=== PATIENT | female | born 1990 | race Caucasian/White ===

== ENCOUNTER 2022-10-01 20:19 | Emergency (ER) | payer BC, OTHER ==
[~2022-10-01] VITALS: Ht 165.1 cm; Wt 104.3 kg
[~2022-10-01 20:19] MED LIST: (None)20 M1 PO; ACET325 PO; ALBU90OI INH; ALBU90OI6 INH; ALBU90OI61 INH; AMIT25 PO; AZIT250 PO; BCP; BENZ100A PO; Bactrim Ds Tab1 EACH PO; CEPH500 PO; CHOL10002 PO; CIPR250 PO; CIPRO500 MG PO; CITA20 PO; CLIN150 PO; CODGUAEL PO; CYCL10 PO; Ciprodex Otic7.5 ML RIGHTEAR; DICL25ER; DOXY100 PO; Excedrin Extra1 EACH; FLUO10 PO; FLUO20 PO; FLUSAL2505 INH; FLUSAL5005 INH; Flagyl500 MG PO; HYDACE5 PO; HYDR1TAB94 PO; IBUP600 PO; IBUP800 PO; IRON; IRON150C PO; KETO10 PO; LAMO50 PO; LAVAP17G PO; LORA.5 PO; MACRODANTIN; MELO7.5 PO; MONT10T PO; MULVITMINE PO; NAPR500 PO; NEOCOLOTSU BOTHEARS; NEOPOLHCSU RIGHTEAR; NITR100CA PO; NUTRISOURCE FIBE4 GM PO; NYST100P TOP; Naprosyn500 MG PO; Norco 5-325 Ta1 EACH PO; OMEP40CA12 PO; ONDA4ODT MM; OXYACE5T PO; PARO20 PO; PHENA200 PO; PRED20 PO; PRENZ PO; Percocet 5-3251 EACH PO; Prednisone20 MG PO; RANI150 PO; RXCLIN PO; Ranitidine HCl150 M1 PO; SACC250C PO; SPIRIVA RESPIMAT4 G1 IH; SULI150 PO; SULTRIDS PO; Sprintec1 EACH PO; TOPI25 PO; TRAM50 PO; Tylophen500 MG PO; Ultram50 MG PO; VIT C; Ventolin/Prove6.7 GM INH; Zithromax250 MG PO; Zofran4 MG PO; [UNRECOGNIZED DRUG - OTHER]
[2022-10-01] MEDS ORDERED: ALBU2.5V5 INH (21:18)
== END 2022-10-01 21:23 | disposition home or self-care (01) ==
LOC: ER 20:19
DX: O99.512 Diseases of the respiratory system complicating pregnancy, second trimester (principal); J45.909 Unspecified asthma, uncomplicated; Z3A.00 Weeks of gestation of pregnancy not specified; Z88.0 Allergy status to penicillin; Z88.5 Allergy status to narcotic agent; Z79.899 Other long term (current) drug therapy
CPT/HCPCS: 94640; 94664

== ENCOUNTER 2023-01-13 17:16 | Inpatient (IN) | payer BC, OTHER ==
[~2023-01-13] VITALS: Ht 165.1 cm; Wt 117.0 kg
[2023-01-13] VITALS (35 sets, daily range): BP systolic 67–203; BP diastolic 36–97
[~2023-01-13 17:16] MED LIST changes: +ALBU2.5V5 INH
[2023-01-13 18:10] LABS: BASOPHILS ABSOLUTE AUTO 0.03 K/mm3 (0.00-0.23); BASOPHILS PERCENT AUTO 0 % (0-2); EOSINOPHILS ABSOLUTE AUTO 0.08 K/mm3 (0.00-0.68); EOSINOPHILS PERCENT AUTO 1 % (0-6); Hemoglobin 9.4 g/dL (11.5-16.0); IMMATURE GRAN ABSOLUTE AUTO 0.07 K/mm3 (0.00-0.10); IMMATURE GRAN PERCENT AUTO 1 % (0-1); LYMPHOCYTES ABSOLUTE AUTO 1.97 K/mm3 (0.84-5.20); LYMPHOCYTES PERCENT AUTO 17 % (21-46); MONOCYTES ABSOLUTE AUTO 0.83 K/mm3 (0.16-1.47); MONOCYTES PERCENT AUTO 7 % (4-13); Mean Corpuscular HGB 26.3 pg (26.0-34.0); Mean Corpuscular HGB Conc 32.4 g/dL (31.5-36.5); Mean Corpuscular Volume 81 fL (80-100); Mean Platelet Volume 11.1 fL (9.1-12.4); NEUTROPHILS ABSOLUTE AUTO 8.64 K/mm3 (1.96-9.15); NEUTROPHILS PERCENT AUTO 74 % (41-73); Platelet Count 242 K/mm3 (150-400); RDW Coefficient Variation 15.9 % (11.7-14.2); RDW Standard Deviation 46.5 fL (35.1-46.3); Red Blood Cell Count 3.57 M/mm3 (3.80-5.20); White Blood Cell Count 11.62 K/mm3 (4.00-11.30)
[2023-01-13 18:22] LABS: Albumin, Blood 2.5 g/dL (3.4-5.0); Albumin/Globulin Ratio 0.6 (0.8-1.8); Bilirubin, Total 0.2 mg/dL (0.1-1.0); Bun/Creatinine Ratio 15.8 (12.0-20.0); Calcium, Blood 9.6 mg/dL (8.5-10.1); Creatinine, Blood 0.57 mg/dL (0.40-1.00); Globulin, Blood 4.1 g/dL (2.2-4.0); Potassium, Blood 3.5 mmol/L (3.5-5.5); Total Protein, Blood 6.6 g/dL (6.4-8.2)
[2023-01-14] VITALS (65 sets, daily range): BP systolic 92–206; BP diastolic 51–115
[2023-01-14] MEDS ORDERED: LABE200 PO (07:33)
[2023-01-14] MEDS ORDERED: PRENATAL TABLE1 EAC2 PO (07:34)
[2023-01-15] VITALS (53 sets, daily range): BP systolic 123–193; BP diastolic 58–110
[2023-01-15 04:52] LABS: Hematocrit 27.2 % (33.0-51.0); Hemoglobin 8.6 g/dL (11.5-16.0); Mean Corpuscular HGB 26.1 pg (26.0-34.0); Mean Corpuscular HGB Conc 31.6 g/dL (31.5-36.5); Mean Corpuscular Volume 82 fL (80-100); Mean Platelet Volume 11.5 fL (9.1-12.4); Platelet Count 219 K/mm3 (150-400); RDW Coefficient Variation 16.2 % (11.7-14.2); RDW Standard Deviation 48.2 fL (35.1-46.3); White Blood Cell Count 11.98 K/mm3 (4.00-11.30)
--- NOTE | 2023-01-15 14:59 | NUR ---
PATIENTS BLOOD PRESSURE 177/102. PATIENT SITTING STRAIGHT UP IN BED EATING CHILI. MEDICATED WITH 200 MG OF LABETALOL APPROX 1445. C. GA WHITLEYM ON UNIT AND NOTIFIED OF ELEVATED BP. ORDER TO RECHECK BP I 1 HOUR
--- NOTE | 2023-01-15 20:52 | NUR ---
BP NOTE: PT BP 193/105. RN ENTERED ROOM AND PT SITTING UP IN BED TRYING TO PUMP. PT STATES THAT SHE HAS A LOT GOING ON STATING CONCERNS ABOUT NOT BEING ABLE TO FEED HER BABY BECAUSE HER PUMP IS NOT WORKING AND THE BABY IS NOW DISCHARGED. THIS RN ASSISSTED PT WITH BREAST PUMP AND REASSURED HER THAT WE WILL MAKE SURE HER BABY IS FED. PT REASSURED THAT SMALL AMOUNTS OF EXPRESSED MILK IS NORMAL AT THIS TIME. FAMILY MEMBERS EDUCATED ON IMPORTANCE OF CALM ENVIRONMENT. LIGHTS TURNED OFF AT THIS TIME.
[2023-01-16] VITALS (44 sets, daily range): BP systolic 127–212; BP diastolic 63–119
--- NOTE | 2023-01-16 10:40 | NUR ---
PT MOVING WITH EVERY SINGLE BLOOD PRESSURE. EACH TIME THE BLOOD PRESSURE MACHINE GOES OFF I ASK PT TO PLEASE SIT STILL AND SHE CONTINUES TO MOVE, FEED BABY, STRETECH HER ARMS, SIT UP, AND TALK. PT IS NOT COMPLIANT WITH STAYING STILL DURING BP CHECKS.
--- NOTE | 2023-01-16 10:56 | NUR ---
PT TEARFUL AND EMOTIONAL BECAUSE SHE "WANTS TO GO HOME". I EXPLAINED TO PT WHY IT IS IMPORTANT FOR HER TO STAY IN THE HOSPITAL UNDER OUR CARE/ MONITORING. PT UNDERSTANDS. SHE REPORTS SHE IS JUST "TIRED AND FRUSTRATED BECAUSE SHE DOESN'T UNDERSTAND WHY HER BP'S ARE HIGH". I STAYED WITH PT FOR AROUND 15 MINUTES AND TALKED TO HER ABOUT PIH AND WHY IT CAN HAPPEN RANDOMLY. PT FELT BETTER AFTER I LEFT AND STATED SHE WAS ACCEPTING OF STAYING THE REST OF THE DAY.
--- NOTE | 2023-01-16 11:19 | NUR ---
INDIA SCHERER CALLED ON THE PHONE AND STATED THAT SHE CONSULTED WITH DR. HENRY. DR. HENRY ORDERED THAT WE START THE PROTOCOL EVEN AFTER GIVING THE NIFEDIPINE 60CXR AT 1003.
--- NOTE | 2023-01-16 14:28 | NUR ---
INDIA SCHERER CONTACTED AND TOLD THAT PT'S BLOOD PRESSURE IS STLL 159/102 AFTER RUNNING THE LEBETOLOL PROTOCOL. PT DENIES HEADACHE, BLURRY VISION, EPIGASTRIC PAIN, OR ANYTHING "ABNORMAL" INDIA CONSULTED WITH DR WONDERLY ON THE PHONE AND HE RECOMMENDED STARTING MAGNESIUM AGAIN IV ON PT. WAITING FOR ORDERS AND THEN WILL START MAGNESIUM ON PT. WILL CONTUNUE TO MONITOR.
[2023-01-16 16:19] LABS: BASOPHILS ABSOLUTE AUTO 0.04 K/mm3 (0.00-0.23); BASOPHILS PERCENT AUTO 0 % (0-2); EOSINOPHILS ABSOLUTE AUTO 0.13 K/mm3 (0.00-0.68); EOSINOPHILS PERCENT AUTO 1 % (0-6); Hematocrit 28.2 % (33.0-51.0); Hemoglobin 8.7 g/dL (11.5-16.0); IMMATURE GRAN ABSOLUTE AUTO 0.03 K/mm3 (0.00-0.10); IMMATURE GRAN PERCENT AUTO 0 % (0-1); LYMPHOCYTES ABSOLUTE AUTO 1.64 K/mm3 (0.84-5.20); LYMPHOCYTES PERCENT AUTO 18 % (21-46); MONOCYTES ABSOLUTE AUTO 0.54 K/mm3 (0.16-1.47); MONOCYTES PERCENT AUTO 6 % (4-13); Mean Corpuscular HGB Conc 30.9 g/dL (31.5-36.5); Mean Corpuscular Volume 84 fL (80-100); Mean Platelet Volume 11.2 fL (9.1-12.4); NEUTROPHILS ABSOLUTE AUTO 6.66 K/mm3 (1.96-9.15); NEUTROPHILS PERCENT AUTO 74 % (41-73); Platelet Count 255 K/mm3 (150-400); RDW Coefficient Variation 16.1 % (11.7-14.2); Red Blood Cell Count 3.35 M/mm3 (3.80-5.20); White Blood Cell Count 9.04 K/mm3 (4.00-11.30)
[2023-01-16 16:38] LABS: Albumin, Blood 2.6 g/dL (3.4-5.0); Albumin/Globulin Ratio 0.6 (0.8-1.8); Bilirubin, Total 0.3 mg/dL (0.1-1.0); Bun/Creatinine Ratio 14.1 (12.0-20.0); Calcium, Blood 8.1 mg/dL (8.5-10.1); Creatinine, Blood 0.57 mg/dL (0.40-1.00); Globulin, Blood 4.2 g/dL (2.2-4.0); Total Protein, Blood 6.8 g/dL (6.4-8.2)
[2023-01-16 16:39] LABS: International Normalized Ratio 0.85
--- NOTE | 2023-01-16 19:21 | NUR ---
RN INTO ROOM TO ASSESS AND ROUND ON PT. PT AND FOB ARE OUT OF ROOM. 10 YEAR OLD DAUGHTER IS CURRENTLTY WATCHING THE NB. NB FOUND TO BE IN [place] SLEEPING WITH LOOSE BLANKET UNDER THE NB'S FACE. RN PROVIDER BASIC EDUCATION TO THE 10 YEAR OLD DAUGHTER REGARDING WHY IT IS IMPORTANT TO PUT BABIES ON THEIR BACK WHILE THEY SLEEP AND DANGERS OF HAVING LOOSE BLANKETS, STUFFED ANIMALS,ETC IN CRIB. RIGHT WHEN RN WAS GOING TO RESWADDLE THE NB THE PARENTS CAME INTO THE ROOM FROM BEING OUTSIDE. THE MOTHER OF NB STATED THAT THE BABY SLEEPS BETTER ON HIS STOMACH AND SHE WAS "ACTUALLY ABLE TO TAKE A NAP" BECUASE HE WASNT FUSSING. AGAIN RN PROVIDED EDUCATION ON BACK TO SLEEP AND INCREASED RISK OF SIDS. PARENTS VERBALIZE UNDERSTANDING BUT CONTINUE TO LEAVE THE NB ON HIS STOMACH TO KEEP SLEEPING.
[2023-01-17] VITALS (10 sets, daily range): BP systolic 118–159; BP diastolic 63–84
[2023-01-17 01:21] LABS: Creatinine, Urine Random 36.5 mg/dL (27.00-270.00); Protein, Urine Random 13.4 mg/dL (0.0-11.9); Protein/Creat Ratio, Ur Random 0.4
== END 2023-01-17 15:35 | disposition home or self-care (01) | DRG 807 ==
LOC: OBS 17:16 → BC 17:16 → OBS 17:23 → BC 17:24
PROVIDERS: Registered Nurse Community Health; ADMIT Nurse Practitioner Obstetrics & Gynecology
PROC: 10E0XZZ Delivery of Products of Conception, External Approach (ICD-10-PCS; principal; 2023-01-14)
PROC: 0HQ9XZZ Repair Perineum Skin, External Approach (ICD-10-PCS; 2023-01-14)
PROC: 3E0R3BZ Introduction of Anesthetic Agent into Spinal Canal, Percutaneous Approach (ICD-10-PCS; 2023-01-14)
PROC: 00HU33Z Insertion of Infusion Device into Spinal Canal, Percutaneous Approach (ICD-10-PCS; 2023-01-14)
PROC: 10907ZC Drainage of Amniotic Fluid, Therapeutic from Products of Conception, Via Natural or Artificial Opening (ICD-10-PCS; 2023-01-14)
DX: O11.4 Pre-existing hypertension with pre-eclampsia, complicating childbirth (principal); Z37.0 Single live birth; Z3A.39 39 weeks gestation of pregnancy; O70.0 First degree perineal laceration during delivery; O99.824 Streptococcus B carrier state complicating childbirth; O99.334 Smoking (tobacco) complicating childbirth; F17.210 Nicotine dependence, cigarettes, uncomplicated; Z88.0 Allergy status to penicillin; Z88.1 Allergy status to other antibiotic agents; Z88.8 Allergy status to other drugs, medicaments and biological substances
CPT/HCPCS: 36415; 51701; 51702; 80053; 82570; 83615; 84156; 85025; 85027; 85384; 85610; 85730; 86850; 86900; 86901; A9270; J0360; J0612; J1885; J2210; J2270; J2590; J3010; J3370; J3475; J7050; J7120; T2101

== ENCOUNTER → 2023-07-29 | Outpatient (CLI) | payer BC, OTHER ==
[~2023-07-29] MED LIST changes: +LABE200 PO; +PRENATAL TABLE1 EAC2 PO
== END ==
LOC: LAB SHORT 18:56 → LAB 18:56
DX: N39.0 Urinary tract infection, site not specified (principal)
CPT/HCPCS: 87086